=== PATIENT | male | born 1980 | race American Indian/Alaskan Native ===

== ENCOUNTER 2018-09-13 09:02 | Emergency (ER) | payer BC ==
[2018-09-13] MEDS ORDERED: FIORICET PO ONE (10:01)
--- NOTE | 2018-09-13 10:06 | Emergency Department Report ---
ED General Adult HPI - General Chief complaint: Headache Stated complaint: HEADACHE/BODY ACHE/2DAYS Time Seen by Provider: 09/13/18 09:31 Source: patient Mode of arrival: Ambulatory Limitations: No Limitations - History of Present Illness Initial comments: Patient presents to the emergency department with a chief complaint of elevated blood pressure. Patient states the last time he took blood pressure medicine was greater than a year ago. Patient also complains of a mild diffuse headache for the last 4-7 days. Patient attributes his headache and elevated blood pressure. 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 Patient denies any chest pain, short of breath, numbness, weakness, facial droop. -: Gradual Location: head Radiation: non-radiation Severity scale (0 -10): 2 Quality: aching Consistency: constant Improves with: none Worsens with: none Associated Symptoms: denies other symptoms Treatments Prior to Arrival: none - Related Data Allergies Allergy/AdvReac Type Severity Reaction Status Date / Time No Known Allergies Allergy Unverified 09/13/18 09:04 ED Review of Systems ROS: Stated complaint: HEADACHE/BODY ACHE/2DAYS Other details as noted in HPI Comment: All other systems reviewed and negative Constitutional: denies: chills, fever Eyes: denies: eye pain, eye discharge, vision change ENT: denies: ear pain, throat pain Respiratory: denies: cough, shortness of breath, wheezing Cardiovascular: denies: chest pain, palpitations Endocrine: no symptoms reported Gastrointestinal: denies: abdominal pain, nausea, diarrhea Genitourinary: denies: urgency, dysuria Musculoskeletal: denies: back pain, joint swelling, arthralgia Skin: denies: rash, lesions Neurological: headache. denies: weakness, paresthesias Psychiatric: denies: anxiety, depression Hematological/Lymphatic: denies: easy bleeding, easy bruising ED Past Medical Hx - Past Medical History Previous Medical History?: Yes Hx Hypertension: Yes - Surgical History Past Surgical History?: No - Social History Smoking Status: Never Smoker Substance Use Type: Alcohol, Marijuana ED Physical Exam - General Limitations: No Limitations General appearance: alert, in no apparent distress - Head Head exam: Present: atraumatic, normocephalic - Eye Eye exam: Present: normal appearance, PERRL, EOMI - ENT ENT exam: Present: mucous membranes moist - Neck Neck exam: Present: normal inspection - Respiratory Respiratory exam: Present: normal lung sounds bilaterally. Absent: respiratory distress - Cardiovascular Cardiovascular Exam: Present: regular rate, normal rhythm. Absent: systolic murmur, diastolic murmur, rubs, gallop - GI/Abdominal GI/Abdominal exam: Present: soft, normal bowel sounds. Absent: distended, tenderness - Rectal Rectal exam: Present: deferred - Extremities Exam Extremities exam: Present: normal inspection - Back Exam Back exam: Present: normal inspection - Neurological Exam Neurological exam: Present: alert, oriented X3, CN II-XII intact, normal gait, reflexes normal, other (cerebellar exam normal including [id number], [id number], rapid hand movements.). Absent: motor sensory deficit - Psychiatric Psychiatric exam: Present: normal affect, normal mood - Skin Skin exam: Present: warm, dry, intact, normal color. Absent: rash ED Course Vital Signs 09/13/18 09:07 Temperature 98.1 F Pulse Rate 63 Respiratory 18 Rate Blood Pressure 178/103 O2 Sat by Pulse 95 Oximetry ED Medical Decision Making - Medical Decision Making Discussed complete workup versus outpatient follow-up and the patient states that he'll prefer to do outpatient workup with her primary care physician and asked for referrals Critical care attestation.: If time is entered above; I have spent that time in minutes in the direct care o f this critically ill patient, excluding procedure time. ED Disposition Clinical Impression: Hypertension Disposition: DC-01 TO HOME OR SELFCARE Is pt being admited?: No Does the pt Need Aspirin: No Condition: Stable Instructions: Hypertension (ED) Additional Instructions: return if worse Referrals: SIMEON GOLDBERG MD [Staff Physician] - 3-5 Days PINO TAVAREZ MD [Staff Physician] - 3-5 Days [facility] [Provider Group] - 3-5 Days [facility] [Provider Group] - 3-5 Days [facility] [Outside] - 3-5 Days [facility] [Provider Group] - 3-5 Days Time of Disposition: 10:05
[2018-09-13] MEDS ORDERED: HCTZ PO ONE (10:07)
[2018-09-13 10:27] VITALS: BP 168/108
== END 2018-09-13 10:38 | disposition home or self-care (01) ==
LOC: ED 09:02
DX: I10 Essential (primary) hypertension (principal); F12.10 Cannabis abuse, uncomplicated
CPT/HCPCS: 99282

== ENCOUNTER 2019-03-07 22:58 | Emergency (ER) | payer BC, OTHER ==
[2019-03-08] MEDS ORDERED: dexAMETHasone 20 MG/5 ML VIAL IM ONE (00:29)
[2019-03-08] MEDS ORDERED: KETOROLAC 30 MG/1 ML INJ IM ONE (00:29)
[2019-03-08 01:23] VITALS: BP 136/87
--- NOTE | 2019-03-08 01:31 | Emergency Department Report ---
ED Back Pain/Injury HPI - General Chief Complaint: Back Pain/Injury Stated Complaint: BACK AND RT HIP PAIN Time Seen by Provider: 03/07/19 23:55 Source: patient Limitations: No Limitations - History of Present Illness Initial Comments: Mr. Dillon is a 38-year-old -Stateless male with a history of chronic low back pain. Presents for father with low back pain radiating to the right lateral leg for the past 2 days. Patient denies new, fall,injury, or trauma. Pain is 5 /10 , there is no numbness, no tingling, or paralysis ,no loss or decrease in bowel or bladder function. Patient drove self to ED if it is ambulatory with steady gait at this time. pain is exacerbated by movement bending and twisting, pain is relieved by nothing tried. MD Complaint: back pain Onset/Timin -: days(s) Similar Symptoms Previously: Yes Place: home Radiation: right leg Severity: moderate Severity scale (0 -10): 5 Quality: sharp Consistency: constant Improves With: none Worsens With: movement, sitting upright, walking Context: turning/twisting, bending Associated Symptoms: denies other symptoms. denies: numbness, difficulty walking, difficulty urinating, incontinence - Related Data Previous Rx's Medication Instructions Recorded Last Taken Type hydroCHLOROthiazide [HCTZ] 25 mg PO QDAY #21 tablet 09/13/[address] [[place]andra Valdes] 75 mg PO TID PRN #30 tablet 03/08/19 Unknown Rx Menthol/Camphor [[place] 1 applicatio TP TID PRN #1 tube 03/08/19 Unknown Rx Ointment] methOCARBAMOL [Robaxin TAB] 750 mg PO Q8H PRN #30 tablet 03/08/19 Unknown Rx predniSONE [Deltasone] 40 mg PO QDAY 5 Days #10 tab 03/08/19 Unknown Rx Allergies Allergy/AdvReac Type Severity Reaction Status Date / Time No Known Allergies Allergy Verified 03/07/19 23:03 ED Review of Systems ROS: Stated complaint: BACK AND RT HIP PAIN Other details as noted in HPI Constitutional: denies: chills, fever Eyes: denies: eye pain, eye discharge, vision change ENT: denies: ear pain, throat pain Respiratory: denies: cough, shortness of breath, wheezing Cardiovascular: denies: chest pain, palpitations Endocrine: no symptoms reported Gastrointestinal: denies: abdominal pain, nausea, diarrhea Genitourinary: denies: urgency, dysuria Musculoskeletal: back pain, arthralgia, myalgia Skin: denies: rash, lesions Neurological: denies: headache, weakness, paresthesias Psychiatric: denies: anxiety, depression Hematological/Lymphatic: denies: easy bleeding, easy bruising ED Past Medical Hx - Past Medical History Previous Medical History?: Yes Hx Hypertension: Yes - Surgical History Past Surgical History?: No - Social History Smoking Status: Never Smoker Substance Use Type: None - Medications Home Medications: Home Medications Medication Instructions Recorded Confirmed Last Taken Type hydroCHLOROthiazide [HCTZ] 25 mg PO QDAY #21 tablet 09/13/[address] [Voltaren Dr] 75 mg PO TID PRN #30 tablet 03/08/19 Unknown Rx Menthol/Camphor [[place] 1 applicatio TP TID PRN #1 tube 03/08/19 Unknown Rx Ointment] methOCARBAMOL [Robaxin TAB] 750 mg PO Q8H PRN #30 tablet 03/08/19 Unknown Rx predniSONE [Deltasone] 40 mg PO QDAY 5 Days #10 tab 03/08/19 Unknown Rx ED Physical Exam - General Limitations: No Limitations General appearance: alert, in no apparent distress - Head Head exam: Present: atraumatic, normocephalic - Eye Eye exam: Present: normal appearance - ENT ENT exam: Present: mucous membranes moist - Neck Neck exam: Present: normal inspection, full ROM. Absent: tenderness - Respiratory Respiratory exam: Present: normal lung sounds bilaterally. Absent: respiratory distress, wheezes, chest wall tenderness - Cardiovascular Cardiovascular Exam: Present: regular rate, normal rhythm, normal heart sounds. Absent: systolic murmur, diastolic murmur, rubs, gallop - GI/Abdominal GI/Abdominal exam: Present: soft, normal bowel sounds. Absent: distended, tenderness, guarding, rebound, rigid, bruit, hernia - Rectal Rectal exam: Present: deferred - Extremities Exam Extremities exam: Present: normal inspection, full ROM, normal capillary refill. Absent: tenderness - Back Exam Back exam: Present: full ROM, tenderness, muscle spasm, paraspinal tenderness. Absent: CVA tenderness (R), CVA tenderness (L), vertebral tenderness - Expanded Back Exam Expanded Back exam: Absent: saddle anesthesia Back exam: Positive Straight Leg Raise: Right, Negative Straight Leg Raising: Left - Neurological Exam Neurological exam: Present: alert, oriented X3, CN II-XII intact, normal gait, reflexes normal. Absent: motor sensory deficit - Expanded Neurological Exam Expanded Patient oriented to: Present: person, place, time Motor strength exam: RUE: 5, LUE: 5, RLE: 5, LLE: 5 Best Eye Response ([place]): (4) open spontaneously Best Motor Response ([place]): (6) obeys commands Best Verbal Response ([place]): (5) oriented [place] Total: 15 - Psychiatric Psychiatric exam: Present: normal affect, normal mood - Skin Skin exam: Present: warm, dry, intact, normal color. Absent: rash ED Course Vital Signs 03/07/19 03/08/19 03/08/19 23:06 00:36 01:00 Temperature 98.2 F Pulse Rate 79 78 Respiratory 18 18 18 Rate Blood Pressure 155/85 136/87 [Right] O2 Sat by Pulse 95 95 Oximetry ED Medical Decision Making - Medical Decision Making Pain is improved to 2/10, patient states ready for dc to home. Plan: DC to home prescription for NSAIDs, steriods, muscle relaxants ,analgesic balm, moist heat therapy, back exercises. Pt will follow up with orthopedics in 2-3 days Critical care attestation.: If time is entered above; I have spent that time in minutes in the direct care of this critically ill patient, excluding procedure time. ED Disposition Clinical Impression: Low back strain Qualifiers: Encounter type: initial encounter Qualified Code(s): S39.012A - Strain of muscl e, fascia and tendon of lower back, initial encounter Disposition: DC-01 TO HOME OR SELFCARE Is pt being admited?: No Does the pt Need Aspirin: No Condition: Stable Instructions: Muscle Strain (ED), Low Back Strain (ED), Core Strengthening Exercises (GEN) Prescriptions: predniSONE [Deltasone] 40 mg PO QDAY 5 Days #10 tab methOCARBAMOL [Robaxin TAB] 750 mg PO Q8H PRN #30 tablet PRN Reason: muscle spasm Menthol/Camphor [[place] Ointment] 1 applicatio TP TID PRN #1 tube PRN Reason: pain Diclofenac [Brodyn ] 75 mg PO TID PRN #30 tablet PRN Reason: pain Referrals: HERNAN MERCEDES MD [Staff Physician] - 3-5 Days Forms: Work/School Release Form(ED) Time of Disposition: 01:38
== END 2019-03-08 01:50 | disposition home or self-care (01) ==
LOC: ED 22:58
DX: S39.012A Strain of muscle, fascia and tendon of lower back, initial encounter (principal); I10 Essential (primary) hypertension; Z79.899 Other long term (current) drug therapy; X58.XXXA Exposure to other specified factors, initial encounter; Y93.89 Activity, other specified; Y92.89 Other specified places as the place of occurrence of the external cause; Y99.8 Other external cause status
CPT/HCPCS: 96372; 99282; J1100; J1885